=== PATIENT | female | born 1945 ===

== ENCOUNTER 2023-05-24 09:57 | Outpatient (CLI) | payer OTHER ==
[~2023-05-24 09:57] MED LIST: HYMOVIS24 MG/3 ML IU; NORFLEX100MG PO; PREDNISONE10 MG PO
== END 2023-05-24 10:02 | disposition home or self-care (01) ==
LOC: RAD 09:57
PROVIDERS: ATTEND Physical Medicine & Rehabilitation
DX: M25.561 Pain in right knee (principal)

== ENCOUNTER 2023-05-27 14:07 | Outpatient (CLI) | payer OTHER | END 2023-05-27 14:16 | disposition home or self-care (01) | LOC: RAD 14:07 | DX: R05.1 Acute cough (principal); M17.12 Unilateral primary osteoarthritis, left knee ==